=== PATIENT | female | born 1990 | race Caucasian/White ===

== ENCOUNTER 2021-02-18 07:46 | Inpatient (IN) | payer OTHER, MEDICAID, SELFPAY ==
[2021-02-18] VITALS (26 sets, daily range): BP systolic 124–169; BP diastolic 70–97; PULSE 61–93; RESP 16–18; TEMP 36.4–37; O2SAT 97–100
--- NOTE | 2021-02-18 09:51 | W.PM.OBHPL1 ---
Date of service: 02/18/21 Time of Service: 10:16 OB-HPI Labor/Delivery History of Present Illness Reason for Visit: Labor Induction Chief Complaint: Scheduled Induction of Labor Indication for Induction: Gestational Diabetes. Comments: 30 yo @ 39 1/7 weeks with well controlled GDM, pos GBS for scheduled induction. Recent bi-weekly NST's consistently Cat 1. Nl BP. Fasting sugars 90-100, pp consistently <120. Hypo thyroid TSH therapeutic on synthroid 75 mcg bilat carpal tunnel - bilat splints mild anemia - on oral iron h/h 11.5 third trimester first delivery 11 hrs on pit due to ROM - Agustín 9# 4 oz plans IUD - paraguard post plans breast feeding prefers to avoid epidural and is reluctant to use Nitrous. Prefers shower and tactile support from Madhav, her Is aware of GBS status and recc for abx Is aware of GDM risks post 39 weeks and attendant risks of induction. We spoke in office and again today re indications for induction, options of Miso vs Pitocin. She and Madhav are aware of tiny risk of hyperstimulation and FHT abnormalities on Pitocin. they wish to proceed. Given GDM there is avg risk of SD - though proven pelvis to 9# 4oz and biometry by Aliya is reassuring - fetus is vtx and ~ 7-8 #. PFSH Social History Smoking/Tobacco Use Status: Former Tobacco Use Quit Date: 02/04/13 Tobacco: How many years used: 8 Smoking risk assessment performed?: Yes Alcohol Intake: former Substance use type: does not use Meds Allergies and Home Medications Home Medications Medication Instructions Recorded Confirmed Type ferrous sulfate mg PO DAILY 02/18/21 History levothyroxine [Synthroid] PO DAILY 02/18/21 History Exam Physical Exam Vital signs: Temp Pulse Resp BP Pulse Ox 37 C 90 16 140/90 98 02/18/21 09:29 02/18/21 09:49 02/18/21 09:29 02/18/21 09:49 02/18/21 09:31 Detailed Labor and Delivery Exam William Score: Cervical Points Exam 0 1 2 3 Dilation Closed 1-2cm 3-4 cm 5-6cm Effacement 0-30% 40-50% 60-70% 80% Consistency Firm Medium Soft Station -3 -2 -1,0 +1,+2 Position Posterior Mid Anterior 30%, 3 cm, soft, mid, -3 all fit with Bishops 5 HEENT Exam HEENT Exam: Normal Respiratory Exam Respiratory Exam: Normal Abdominal Exam Abdominal Exam: Normal Detailed Abdominal Exam Comments: 40 cm fh - non tender Vtx and est weight = 7-8# Detailed Exam Perineum Description: Normal Comments: cervical exam 3 cm, sofr, mid position, -3, vtx, 30% in office 02/17 Skin Exam Skin Exam: Normal Additional findings Additional findings: alert, comfortable, expected mild anxiety Results Results Group Beta Strep: Positive Additional Findings Results: NST category 1 on admission initial BP's above average 135-140/85-90 - no epigastric sx, dee or visual changes Risk Assessment Risk for Shoulder Dystocia Increased Risk?: Yes Counseling: due to well controlled GDM Date/Initial: 02/18 [facility] Delivery Plan @ 40 wks: induction @ 39 weeks Risk for Pre-Eclampsia Daily Dose ASA Indicated: No Risk for Post- Hemorrhage At Risk?: No Risks Reviewed Risks Reviewed Upon Admission: Yes
[2021-02-18] MEDS: Normal Saline Flush 10 ML SYR IVP (10:12)
[2021-02-18 10:45] LABS: HCT 38.8 % (36.0-46.0); HGB 12.9 g/dL (11.2-15.7); MCH 29.5 pg (27.0-33.0); MCHC 33.2 % (32.0-36.0); MCV 88.8 fL (80-95); MPV 12.6 fL (8.0-11.0); Platelet Count 131 10^3/uL (130-400); RBC 4.37 10^6/uL (3.93-5.22); RDW 13.3 % (11.7-14.6); RDW-SD 43.5 fL; WBC 10.16 10^3/uL (4.4-10.8)
--- NOTE | 2021-02-18 10:59 | W.PM.OBNL1 ---
Date of service: 02/18/21 Time of Service: 11:11 Pelvic Exam Dilation: 3 Effacement (%): 30 station: -3 Position: OA Cervix Position: anterior Consistency: soft BISHOPS Score(Cervical Ripeness Score): 5 Vaginal Exam Presentation: Vertex Pooling: Negative Comments: intact membranes, vtx, bishops score is favorable Contractions Monitor Mode: External Contraction Frequency(min): none, yet Contraction Duration(sec): n/a Fetus A Monitor: External (US) Heart Rate Baseline: 145 Presentation: Vertex Variability: Moderate (6-25 BPM) Characteristics: Normal Accelerations: 15 X 15 Decelerations: None Amniotic Membrane Status: Intact Assessment Note: category one Objective Abnormal lab results 02/18/21 Range/Units 10:30 MPV 12.6 H (8.0-11.0) fL Temp Pulse Resp BP Pulse Ox 37 C 90 16 140/90 98 02/18/21 09:29 02/18/21 09:49 02/18/21 09:29 02/18/21 09:49 02/18/21 09:31 Laboratory Results WBC 10.16 10^3/uL (4.4-10.8) 02/18/21 10:30 RBC 4.37 10^6/uL (3.93-5.22) 02/18/21 10:30 Hgb 12.9 g/dL (11.2-15.7) 02/18/21 10:30 Hct 38.8 % (36.0-46.0) 02/18/21 10:30 MCV 88.8 fL (80-95) 02/18/21 10:30 MCH 29.5 pg (27.0-33.0) 02/18/21 10:30 MCHC 33.2 % (32.0-36.0) 02/18/21 10:30 RDW 13.3 % (11.7-14.6) 02/18/21 10:30 Plt Count 131 10^3/uL (130-400) 02/18/21 10:30 MPV 12.6 fL (8.0-11.0) H 02/18/21 10:30 Subjective Patient Reports: No new Complaints Interval history since last seen: up walking center staffing good to proceed. Gayla's BP is stable/improved. She and Madhav are ready to proceed. Given William's score and prior hx with successful induction with pitocin will start with that today. Interventions Induction Indication: Gestational Diabetes , Type of Induction: Pitocin , Results Hemoglobin/Hematocrit: Hgb 12.9 g/dL (11.2-15.7) 02/18/21 10:30 Hct 38.8 % (36.0-46.0) 02/18/21 10:30 Abnormal Lab Findings: Abnormal Labs 02/18/21 10:30 MPV 12.6 H
[2021-02-18] MEDS: Oxytocin/Normal Saline 30 UNIT/500 ML BAG 2 UNITS IV (11:46)
--- NOTE | 2021-02-18 12:33 | W.PM.OBNL1 ---
Date of service: 02/18/21 Time of Service: 12:37 Objective Abnormal lab results 02/18/21 Range/Units 10:30 MPV 12.6 H (8.0-11.0) fL Temp Pulse Resp BP Pulse Ox 36.6 C 93 H 16 124/81 98 02/18/21 12:04 02/18/21 12:04 02/18/21 09:29 02/18/21 12:04 02/18/21 09:31 Laboratory Results WBC 10.16 10^3/uL (4.4-10.8) 02/18/21 10:30 RBC 4.37 10^6/uL (3.93-5.22) 02/18/21 10:30 Hgb 12.9 g/dL (11.2-15.7) 02/18/21 10:30 Hct 38.8 % (36.0-46.0) 02/18/21 10:30 MCV 88.8 fL (80-95) 02/18/21 10:30 MCH 29.5 pg (27.0-33.0) 02/18/21 10:30 MCHC 33.2 % (32.0-36.0) 02/18/21 10:30 RDW 13.3 % (11.7-14.6) 02/18/21 10:30 Plt Count 131 10^3/uL (130-400) 02/18/21 10:30 MPV 12.6 fL (8.0-11.0) H 02/18/21 10:30 Patient ABO/Rh A Positive 02/18/21 10:30 Antibody Screen NEGATIVE 02/18/21 10:30 Subjective Interval history since last seen: Pit at 4 units - so far no ctx. Up moving with support from [place] no ROM, good FMVT FHT - cat 1 - no decels and no ctx no indication for cervical check O: BP better - see flow sheet A: Pit induction underway - fetus tolerating well maternal and wellbeing once ctx start will initiate IV ABX for GBS prophy P: Cont advancing pit ABX when ctx apparent Expect Results Hemoglobin/Hematocrit: Hgb 12.9 g/dL (11.2-15.7) 02/18/21 10:30 Hct 38.8 % (36.0-46.0) 02/18/21 10:30 Abnormal Lab Findings: Abnormal Labs 02/18/21 10:30 MPV 12.6 H
[2021-02-18 13:17] LABS: Source Nasal/Nares
--- NOTE | 2021-02-18 13:52 | W.PM.OBNL1 ---
Date of service: 02/18/21 Time of Service: 13:52 Objective Abnormal lab results 02/18/21 Range/Units 10:30 MPV 12.6 H (8.0-11.0) fL Temp Pulse Resp BP Pulse Ox 36.6 C 93 H 16 124/81 98 02/18/21 12:04 02/18/21 12:04 02/18/21 09:29 02/18/21 12:04 02/18/21 09:31 Laboratory Results WBC 10.16 10^3/uL (4.4-10.8) 02/18/21 10:30 RBC 4.37 10^6/uL (3.93-5.22) 02/18/21 10:30 Hgb 12.9 g/dL (11.2-15.7) 02/18/21 10:30 Hct 38.8 % (36.0-46.0) 02/18/21 10:30 MCV 88.8 fL (80-95) 02/18/21 10:30 MCH 29.5 pg (27.0-33.0) 02/18/21 10:30 MCHC 33.2 % (32.0-36.0) 02/18/21 10:30 RDW 13.3 % (11.7-14.6) 02/18/21 10:30 Plt Count 131 10^3/uL (130-400) 02/18/21 10:30 MPV 12.6 fL (8.0-11.0) H 02/18/21 10:30 COVID-19 Source Nasal/Nares 02/18/21 12:50 Patient ABO/Rh A Positive 02/18/21 10:30 Antibody Screen NEGATIVE 02/18/21 10:30 Subjective Interval history since last seen: Ctx now consistent and palpable - not too uncomfortable standing/rocking/tactile support from Madhav very helpful No ROM, good FMVT FHT cat 1 - no decels ctx q2 30-60 mmHg - palpate mild/moderate O: BP stable 130/80 A/P: Ctx pattern and frequency adequate - will recheck cervix in ~1 hr to confirm. Cont current pit dose till then - if no cervical change consider increasing pit then. Start GBS prophy abx - PEN G bolus and Q4 to follow Expect Results Hemoglobin/Hematocrit: Hgb 12.9 g/dL (11.2-15.7) 02/18/21 10:30 Hct 38.8 % (36.0-46.0) 02/18/21 10:30 Abnormal Lab Findings: Abnormal Labs 02/18/21 10:30 MPV 12.6 H
[2021-02-18] MEDS: Penicillin G POT. 5,000,000 UNITS in Normal Saline 100 ML 200 UNITS IVPB (14:47)
--- NOTE | 2021-02-18 14:48 | W.PM.OBNL1 ---
Date of service: 02/18/21 Time of Service: 14:48 Objective Abnormal lab results 02/18/21 Range/Units 10:30 MPV 12.6 H (8.0-11.0) fL Temp Pulse Resp BP Pulse Ox 36.5 C 81 16 133/80 98 02/18/21 14:16 02/18/21 14:16 02/18/21 09:29 02/18/21 14:16 02/18/21 09:31 Laboratory Results WBC 10.16 10^3/uL (4.4-10.8) 02/18/21 10:30 RBC 4.37 10^6/uL (3.93-5.22) 02/18/21 10:30 Hgb 12.9 g/dL (11.2-15.7) 02/18/21 10:30 Hct 38.8 % (36.0-46.0) 02/18/21 10:30 MCV 88.8 fL (80-95) 02/18/21 10:30 MCH 29.5 pg (27.0-33.0) 02/18/21 10:30 MCHC 33.2 % (32.0-36.0) 02/18/21 10:30 RDW 13.3 % (11.7-14.6) 02/18/21 10:30 Plt Count 131 10^3/uL (130-400) 02/18/21 10:30 MPV 12.6 fL (8.0-11.0) H 02/18/21 10:30 COVID-19 Source Nasal/Nares 02/18/21 12:50 Patient ABO/Rh A Positive 02/18/21 10:30 Antibody Screen NEGATIVE 02/18/21 10:30 Subjective Interval history since last seen: Continues to do well - excellent support Quite comfortable through ctx SROM - clear and evident pooling on floor + FMVT, no JI, visual changes, fever O: BP stable cervix 4+ cm, soft, 50%/ruptured with clear AF, OA, -3 FHT Cat 1 No decels, mod variability ctx - still variation in intensity - Q2-3 min A/P: Early labor - expected cervical change CTX pattern mild/mod - will bump pit dose by 2 units and expect that plus SROM to increase intensity GBS prophy started - Pen G load infusing currently. Expect Shower and close support from her Madhav varghese. Hernandez Results Hemoglobin/Hematocrit: Hgb 12.9 g/dL (11.2-15.7) 02/18/21 10:30 Hct 38.8 % (36.0-46.0) 02/18/21 10:30 Abnormal Lab Findings: Abnormal Labs 02/18/21 10:30 MPV 12.6 H
--- NOTE | 2021-02-18 17:10 | W.PM.OBNL1 ---
Date of service: 02/18/21 Time of Service: 17:10 Objective Abnormal lab results 02/18/21 Range/Units 10:30 MPV 12.6 H (8.0-11.0) fL Temp Pulse Resp BP Pulse Ox 36.7 C 63 16 151/81 H 98 02/18/21 16:00 02/18/21 17:09 02/18/21 09:29 02/18/21 17:09 02/18/21 09:31 Laboratory Results WBC 10.16 10^3/uL (4.4-10.8) 02/18/21 10:30 RBC 4.37 10^6/uL (3.93-5.22) 02/18/21 10:30 Hgb 12.9 g/dL (11.2-15.7) 02/18/21 10:30 Hct 38.8 % (36.0-46.0) 02/18/21 10:30 MCV 88.8 fL (80-95) 02/18/21 10:30 MCH 29.5 pg (27.0-33.0) 02/18/21 10:30 MCHC 33.2 % (32.0-36.0) 02/18/21 10:30 RDW 13.3 % (11.7-14.6) 02/18/21 10:30 Plt Count 131 10^3/uL (130-400) 02/18/21 10:30 MPV 12.6 fL (8.0-11.0) H 02/18/21 10:30 COVID-19 Source Nasal/Nares 02/18/21 12:50 Patient ABO/Rh A Positive 02/18/21 10:30 Antibody Screen NEGATIVE 02/18/21 10:30 Subjective Interval history since last seen: Continues to tolerate quite well. Some variation in intensity - freq is q 2-4. good FMVT, clear AF or JI or vision changes walking some, up rocking hips taking good PO O: 148/90 bright, alert, comfortable during and in between ctx soft non-tender abd FHT - cat 1 no decels CTX - mod - 40-50 mmHG q 2-4 Cervix - 5+ cm/70%/-2/vtx/ruptured A/P: Appropriate progress with excellent support, position changes Given shared decision making and variation in ctx intensity will increase pit to 12 close f/u of BP - diastolic has been consistently in 80's second dose PEN due ~7 PM Expect S.Genereaux Results Hemoglobin/Hematocrit: Hgb 12.9 g/dL (11.2-15.7) 02/18/21 10:30 Hct 38.8 % (36.0-46.0) 02/18/21 10:30 Abnormal Lab Findings: Abnormal Labs 02/18/21 10:30 MPV 12.6 H
[2021-02-18 17:54] LABS: COVID-19 PCR Negative (Negative)
--- NOTE | 2021-02-18 18:50 | PGE_ITS ---
Date of service: 02/18/21 Time of Service: 18:50 Objective Abnormal lab results 02/18/21 Range/Units 10:30 MPV 12.6 H (8.0-11.0) fL Temp Pulse Resp BP Pulse Ox 36.5 C 61 16 152/91 H 98 02/18/21 18:26 02/18/21 18:26 02/18/21 09:29 02/18/21 18:26 02/18/21 09:31 Laboratory Results WBC 10.16 10^3/uL (4.4-10.8) 02/18/21 10:30 RBC 4.37 10^6/uL (3.93-5.22) 02/18/21 10:30 Hgb 12.9 g/dL (11.2-15.7) 02/18/21 10:30 Hct 38.8 % (36.0-46.0) 02/18/21 10:30 MCV 88.8 fL (80-95) 02/18/21 10:30 MCH 29.5 pg (27.0-33.0) 02/18/21 10:30 MCHC 33.2 % (32.0-36.0) 02/18/21 10:30 RDW 13.3 % (11.7-14.6) 02/18/21 10:30 Plt Count 131 10^3/uL (130-400) 02/18/21 10:30 MPV 12.6 fL (8.0-11.0) H 02/18/21 10:30 COVID-19 Source Nasal/Nares 02/18/21 12:50 SARS-CoV-2 (PCR) Negative (Negative) 02/18/21 12:50 Patient ABO/Rh A Positive 02/18/21 10:30 Antibody Screen NEGATIVE 02/18/21 10:30 Subjective Interval history since last seen: In shower now for close to an hour with steady strong ctx - excellent support from [place] on going clear AF, good FMVT Some rectal pressure with ctx Not wanting to leave shower or get into bed due to comfort Pit at 12 O: 150/80 with ctx - quite iuncomfortable FHT - cat 1 - no decels CTX - strong consistent Q 2-3 cervix - 8 cm, soft/80%/-1/vtx - no caput or molding A/P: Term GDM - induction progress as expected - approp ctx pattern and cervical change and maternal wellbeing GBS prophy underway - due 7pm Expect S.Generbola Results Hemoglobin/Hematocrit: Hgb 12.9 g/dL (11.2-15.7) 02/18/21 10:30 Hct 38.8 % (36.0-46.0) 02/18/21 10:30 Abnormal Lab Findings: Abnormal Labs 02/18/21 10:30 MPV 12.6 H
[2021-02-18] MEDS: Penicillin G POT. 3,000,000 UNITS in Normal Saline 50 ML 100 UNITS IVPB (19:03)
--- NOTE | 2021-02-18 19:31 | W.PM.OBNL1 ---
Date of service: 02/18/21 Time of Service: 19:32 Objective Abnormal lab results 02/18/21 Range/Units 10:30 MPV 12.6 H (8.0-11.0) fL Temp Pulse Resp BP Pulse Ox 36.5 C 67 16 149/84 H 98 02/18/21 18:26 02/18/21 19:29 02/18/21 09:29 02/18/21 19:29 02/18/21 09:31 Laboratory Results WBC 10.16 10^3/uL (4.4-10.8) 02/18/21 10:30 RBC 4.37 10^6/uL (3.93-5.22) 02/18/21 10:30 Hgb 12.9 g/dL (11.2-15.7) 02/18/21 10:30 Hct 38.8 % (36.0-46.0) 02/18/21 10:30 MCV 88.8 fL (80-95) 02/18/21 10:30 MCH 29.5 pg (27.0-33.0) 02/18/21 10:30 MCHC 33.2 % (32.0-36.0) 02/18/21 10:30 RDW 13.3 % (11.7-14.6) 02/18/21 10:30 Plt Count 131 10^3/uL (130-400) 02/18/21 10:30 MPV 12.6 fL (8.0-11.0) H 02/18/21 10:30 COVID-19 Source Nasal/Nares 02/18/21 12:50 SARS-CoV-2 (PCR) Negative (Negative) 02/18/21 12:50 Patient ABO/Rh A Positive 02/18/21 10:30 Antibody Screen NEGATIVE 02/18/21 10:30 Subjective Interval history since last seen: feeling pushy, more intense ctx - ready to get out of the shower good FMVT, clear AF pit at 12 S/p two doses GBS prophy O: Cervix: 9cm/90%/0 sta/vtx/ruptured/OA FHT - cat 1 - no decels CTX - strong and Q2 bp 149/81 - stable A/P: Entering second stage - will support pushing when ready - will encourage passive descent in short term to get to fully and Maternal wellbeing on current pit level complete GBS prophy complete Expect S. Genereaux Results Hemoglobin/Hematocrit: Hgb 12.9 g/dL (11.2-15.7) 02/18/21 10:30 Hct 38.8 % (36.0-46.0) 02/18/21 10:30 Abnormal Lab Findings: Abnormal Labs 02/18/21 10:30 MPV 12.6 H
--- NOTE | 2021-02-18 20:54 | W.OBDELIVERY ---
Date of service: 02/18/21 Time of Service: 20:54 OB Labor/ Delivery Information Baby A Delivery Delivery Method: Spontaneaous Presentation: Cephalic Cephalic Position: Vertex Vertex Position: Left Occipital Posterior Cord Description-Baby A: 3 Vessels Cord Description Comment: nl 3v cord Estimated Blood Loss: 400 Delivery Outcome: Liveborn Infant Complications: none Transferred: Nursery Note: 8/9 - nl nb exam Providers Other: genereaux Labor/Delivery Information Number of Babies in Womb: 1 Steroids Given: None Reason Steroids Not Administered: N/A Group Beta Strep: Positive Antibiotics Administered: Yes Number of Doses of Antibiotics: 2 Rubella Status: Immune Blood Type: A+ Varicella Immunity: Immune Medication in Delivery: iv abx, pitocin Shoulder Dystocia: No Note: precip delivery standing cord - placenta retained one bedside attempt at manual extraction unsuccessful will consult ob and perhaps head to OR for definitive extraction risk of accreta present Stages of Labor Onset of Labor Date: 02/18/21 Onset of Labor Time: 13:00 Complete Dilatation Date: 02/18/21 Complete Dilatation Time: 20:10 Labor - Stage 1 Duration: 0 minutes ROM Baby A: 02/18/21 ROM Baby A: 14:19 ROM Total Time- Baby A: [id number] Infant Delivery Date-Baby A: 02/18/21 Delivery Time-Baby A: 20:11 Labor Stage 2 Duration: 1 minutes Placenta Delivery Date-Baby A: 02/18/21 Total Length of Labor-Baby A: 7 hours and 11 minutes Baby A Gender: Female Gestational Status: Term (39-41.6 wks) Gestational Age in Weeks/Days: 39 Weeks and 3 Days Score-1 Minute Interval(Baby A) Heart Rate-1 minute: 100 BPM or Greater Respiratory Effort- 1 minute: Spontaneous/Strong Cry Muscle Tone-1 minute: Active Movement Reflex Response-1 minute: Prompt Response Color-1 minute: Pallor or Cyanosis Score-5 Minute Interval(Baby A) Heart Rate- 5 minute: 100 BPM or Greater Respiratory Effort-5 minute: Spontaneous/Strong Cry Muscle Tone-5 minute: Active Movement Reflex Response-5 minute: Prompt Response Color-5 minute: Bluish Hands or Feet Note: see above re retained placenta
--- NOTE | 2021-02-18 20:55 | ANES.PREOP_ITS ---
Meds Allergies and Home Medications Home Medication Medication Instructions Recorded ferrous sulfate 325 mg PO DAILY 02/18/21 levothyroxine [Synthroid] 75 mcg PO DAILY 02/18/21 Current Visit Medications: Current Medications Generic Name Dose Route Start Last Admin Trade Name Freq PRN Reason Stop Dose Admin Oxytocin/Sodium Chloride 30 unit in 500 mls @ 2 mls/hr 02/18/21 11:00 02/18/21 17:02 Pitocin/Normal Saline IV 12 milliunits/min INFUSION MATTHEW 12 mls/hr Titration Protocol 2 MILLIUNITS/MIN Penicillin G Potassium 3,000, 50 mls @ 100 mls/hr 02/18/21 19:00 02/18/21 19:03 000 units/ Sodium Chloride IVPB 100 mls/hr Q4H MATTHEW Administration Sodium Chloride 500 mls @ 0 mls/hr 02/18/21 13:44 Saline 500ml Bag IV PRN PRN As Directed Ringer's Solution 1,000 mls @ 125 mls/hr 02/18/21 19:45 IV INFUSION MATTHEW IV Miscellaneous Supplies 1 each 02/18/21 13:45 Iv Access IV DIRECTED MATTHEW Sodium Chloride 0 ml 02/18/21 13:44 Normal Saline Flush 10 Ml Syr IVP PRN PRN PFSH Medical History Medical History Comments:: Per H&P: Gestational DM and hypothyroid. Patient stable on synthroid. Tobacco Smoking/Tobacco Use Status: Former Tobacco Use Tobacco: How many years used: 8 Alcohol Alcohol Intake: former Substance Use Substance use type: does not use Vital Signs and Lab Results Vital Signs Most Recent Vital Signs in EMR: Most Recent Vital Signs Temp Pulse Resp BP Pulse Ox 36.5 C 81 16 147/85 H 100 02/18/21 18:26 02/18/21 20:54 02/18/21 09:29 02/18/21 20:49 02/18/21 20:54 Lab Results Result Diagrams: 02/18/21 10:30 Blood Type / Crossmatch: Patient ABO/Rh A Positive 02/18/21 10:30 02/18/21 Antibody Screen NEGATIVE 02/18/21 10:30 02/18/21 Complete Blood Count: White Blood Count 10.16 10^3/uL (4.4-10.8) 02/18/21 10:30 02/18/21 Red Blood Count 4.37 10^6/uL (3.93-5.22) 02/18/21 10:30 02/18/21 Hemoglobin 12.9 g/dL (11.2-15.7) 02/18/21 10:30 02/18/21 Hematocrit 38.8 % (36.0-46.0) 02/18/21 10:30 02/18/21 Platelet Count 131 10^3/uL (130-400) 02/18/21 10:30 02/18/21 Complete Metabolic Panel: No Data to Display Liver Function Panel: No Data to Display Coagulation Panel: No Data to Display Cardiac Panel: No Data to Display Arterial Blood Gas: No Data to Display Venous Blood Gas: No Data to Display Pancreas Panel: No Data to Display Thyroid Panel: No Data to Display Infectious Disease: 2 Coronavirus (COVID-19)(PCR) Negative (Negative) 02/18/21 12:50 02/18/21 Coronavirus 2019 Source Nasal/Nares 02/18/21 12:50 02/18/21 Blood Cultures: No Data to Display Toxicology Panel: No Data to Display Panel: No Data to Display Anesthesia Assessment and Plan Anesthesia History Personal History: No History of Anesthesia Complications Family History: No Family History of Anesthesia Complications Exercise Tolerance Exercise Tolerance: Metabolic Equivalents>4 Pertinent Negatives Pertinent Negatives: No Major Cardiovascular Symptoms or Complaints, No Major Pulmonary Symptoms or Complaints and No History of CVA/TIA Cardiac & Pulmonary Exam Cardiac Exam: Normal S1/S2 Heart Sounds Pulmonary Exam: Clear Bilateral Breath Sounds Airway Exam Known Difficult Airway: No Mallampati Class: 2 Mouth Opening: Normal (> 3cm) Thyromental Distance: Greater than 3 cm Neck Range of Motion: Full ROM Neck Circumference: Normal Teeth Condition: Normal Dentition ASA Classification ASA Score: ASA 2 Emergency Case?: Yes NPO Status NPO Status: Full Stomach Status Status: Other (Recently ) Anesthesia Plan Resuscitation Status: Full Code Anesthesia Technique: General Anesthesia (RSI) Airway Planned: Endotracheal Tube Monitors Used: Standard Monitors
--- NOTE | 2021-02-19 06:07 | NUR.NOTE ---
Nursing Note: At 20:20 umbilical cord noted to be avulsed by Dr. José, no heavy bleeding noted. 20:30 oxytocin bolus started. At 20:36 Dr. Avelar notifed of situation by Dr. José, renovation plant supervisor notified, called in OR team. 20:55 Second IV placed 18g R AC by supervisor dimension warehouse. Vaginal bleeding remains moderate. 2102 Turcios catheter placed for return 400ml clear urine. Pt involved in all decisions of care, questions answered. 2112 Dr Avelar present, evaluated pt. 2[address] manually extracted by Dr Avelar, fundus massaged, firm at umbilicus, no heavy bleeding or clots, pt tolerated well. Will continue to monitor.
[2021-02-19 08:30] LABS: HGB 12.3 g/dL (11.2-15.7); MCH 29.5 pg (27.0-33.0); MCHC 33.2 % (32.0-36.0); MCV 88.7 fL (80-95); MPV 13.5 fL (8.0-11.0); Platelet Count 142 10^3/uL (130-400); RBC 4.17 10^6/uL (3.93-5.22); RDW 13.4 % (11.7-14.6); RDW-SD 43.9 fL; WBC 14.52 10^3/uL (4.4-10.8)
[2021-02-19] MEDS: Ibuprofen 600 MG TAB PO (08:34)
[2021-02-19] MEDS: Acetaminophen 325 MG TAB 650 MG PO (08:34)
[2021-02-19 08:44] VITALS: BP 128/84; PULSE 81; RESP 16; TEMP 36.3; O2SAT 97
--- NOTE | 2021-02-19 09:14 | DSE_ITS ---
Date of service: 02/19/21 Time of Service: 09:14 DS: Diagnosis Discharge Diagnosis (1) (normal spontaneous vaginal delivery): Status: Acute (2) Retained placenta: Status: Acute (3) Gestational diabetes mellitus (GDM) affecting : Status: Acute Discharge Plan Disposition Patient Disposition: HOME Condition: Good Discharge Details Reason For Visit: Labor Induction Admit Date/Time: 02/18/21 07:46 Admit Provider: Pedrito José Attending Provider: Pedrito José Primary Care Provider: Pedrito José Hospital Course Hospital Course: following pit induction for GDM @ 39 weeks. with ruptured/torn cord due to sudden traction during precip delivery while standing. Subsequent retained placenta required two attempts at manual extraction - successfully removed essentially spontaneaously at second attempt. Minimal EBL - 400. IV pit. Breast feeding support planned - pump Home Meds and New Rx's Prescriptions: No Action levothyroxine [Synthroid] 75 mcg Tablet 75 mcg PO DAILY RF: 0 ferrous sulfate 325 mg (65 mg iron) Tablet 325 mg PO DAILY RF: 0 Discharge Instructions Additional Instructions: breast pump for home use cont daily synthroid and iron f/u appts fri 1:00 for weight recheck with Dr. Rogers mon 02/23 10:00 for weight recheck with Dr. Ribera Activity:: Activity as Tolerated Equipment/Supplies:: breast pump Diet:: As Tolerated Discharge Orders Discharge Orders: Discharge Order (Routine); Ordered 02/19/21 Ordered By: Pedrito José OB:DS Summary Summary Vaginal Delivery Method: Spontaneaous Laceration Description: None Contraception Discussed Contraception Discussed: Yes, Infant Gender-Baby A: Female weight: 3935 g Status at Discharge Functional status at discharge: independent ambulation Overall status at discharge: patient is back to baseline Mental Status: mental status grossly normal Speech and Movement: speech and movement normal Mood: congruent mood Affect: normal affect Exam Physical Exam Vital signs: Temp Pulse Resp BP Pulse Ox 36.3 C L 81 16 128/84 97 02/19/21 08:44 02/19/21 08:44 02/19/21 08:44 02/19/21 08:44 02/19/21 08:44 Constitutional Comments: exam is benign: alert, chiupper, comfortable doing all self care - showered, eating, voiding no unusual lochia, fever or pain expected perineal discomfort lungs - celar cgv s- reg, no murmur abd - soft, non-tender with firm fundus at umbilicus ext - scant/no pedal edema - baseline hand edema unchanged from pre time [facility] Social History Smoking/Tobacco Use Status: Former Tobacco Use Quit Date: 02/04/13 Tobacco: How many years used: 8 Smoking risk assessment performed?: Yes Alcohol Intake: former Substance use type: does not use DS: Data Vitals/I&O Vitals and I&O: Vital Signs Temperature 36.3 C L 02/19/21 08:44 Pulse 81 02/19/21 08:44 Pulse Rhythm Regular 02/19/21 08:44 Respiratory Rate 16 02/19/21 08:44 Blood Pressure 128/84 02/19/21 08:44 Blood Pressure Mean 98 02/19/21 08:44 Pulse Oximetry 97 02/19/21 08:44 Pain Level 2 02/19/21 08:44 Comment 02/18/21 17:09 Intake & Output 02/18/21 02/18/21 02/19/21 11:59 23:59 11:59 Intake Total 400 / 1045.100 645.100 / 1045.100 150 / 150 Output Total 300 / 1000 700 / 1000 700 / 700 Balance 100 / 45.100 -54.900 / 45.100 -550 / -550 Weight 110.677 kg Intake: IV 45.100 / 45.100 150 / 150 Oral 400 / 1000 600 / 1000 Output: Urine 300 / 1000 700 / 1000 700 / 700 Other: Urine Color Yellow Yellow Urine Appearance Clear Data Completed and Pending Labs on day of discharge: Labs from last 24 hours 02/19/21 02/18/21 02/18/21 07:50 12:50 10:30 WBC 14.52 H D RBC 4.17 Hgb 12.3 Hct 37.0 MCV 88.7 MCH 29.5 MCHC 33.2 RDW 13.4 Plt Count 142 MPV 13.5 H COVID-19 Source Nasal/Nares SARS-CoV-2 (PCR) Negative Patient ABO/Rh A Positive Antibody Screen NEGATIVE 02/18/21 10:30 WBC 10.16 RBC 4.37 Hgb 12.9 Hct 38.8 MCV 88.8 MCH 29.5 MCHC 33.2 RDW 13.3 Plt Count 131 MPV 12.6 H COVID-19 Source SARS-CoV-2 (PCR) Patient ABO/Rh Antibody Screen
--- NOTE | 2021-02-19 12:19 | OBCE_ITS ---
Date of service: 02/19/21 Time of Service: 12:19 Assessment and Plan Assessment and plan (1) Retained placenta: Status: Acute Qualifiers: Retained placenta detail: complete placenta Qualified Code(s): O73.0 - Retained placenta without hemorrhage (2) (normal spontaneous vaginal delivery): Status: Acute History of Present Illness History of Present Illness Chief Complaint: retained placenta Narrative: I received a phone call from Dr. José, the delivering provider, ~ 20min after the patient had delivered a viable female while in the standing position. There was an avulsion of the umbilical cord from the placenta at the time of delivery. The umbilical cord had been clamped and cut without any or maternal blood loss. The mother had received Oxytocin after delivery of the . After 20 min of fundal massage the placenta had not delivered. Attempts at grasping the placental edge were complicated by pt discomfort and the lack of an umbilical cord. There was minimal vaginal bleeding and the pt's vital signs were stable. Upon arrival in the patien't room a repeat SVE was performed and the placenta was in the vaginal vault. She was able to expel the placenta with two excellent maternal expulsive efforts. The maternal surface was intact and the cord evulsed at the central insertion. The patient's uterus was firm and bleeding was minimal. Placenta was not sent to pathology. Consults Consult date: 02/18/21 Requesting physician: Pedrito José Review of Systems All systems reviewed & are unremarkable except as noted in HPI and below PFSH Social History Smoking/Tobacco Use Status: Former Tobacco Use Quit Date: 02/04/13 Tobacco: How many years used: 8 Smoking risk assessment performed?: Yes Alcohol Intake: former Substance use type: does not use History History 3 Para 2 Hx # Term Pregnancies 2 Multiple births Hx # Pregnancies Ectopic pregnancies AB induced Hx Number of Living Children 2 AB spontaneous Past Pregnancies Del. Date GA/Weeks # Outcome Route Wgt Sex Labor Lgth Anesthes ia Location Prov Complic 02/18/21 No Successful vaginal Female edith phen generaux Delivery Date: 02/18/21 avulsion of umbilical cord. Spontaneous del of placenta. Annel Avelar Results Last Vital Signs Temp 97.3 F L 02/19/21 08:44 Pulse 81 02/19/21 08:44 Resp 16 02/19/21 08:44 BP 128/84 02/19/21 08:44 Pulse Ox 97 02/19/21 08:44 Labs Result diagrams: 02/19/21 07:50 Labs: Laboratory Results - last 24 hr 02/18/21 02/19/21 12:50 07:50 WBC 14.52 H D RBC 4.17 Hgb 12.3 Hct 37.0 MCV 88.7 MCH 29.5 MCHC 33.2 RDW 13.4 Plt Count 142 MPV 13.5 H COVID-19 Source Nasal/Nares SARS-CoV-2 (PCR) Negative
== END 2021-02-19 12:35 | disposition home or self-care (01) | DRG 807 ==
PROVIDERS: Admitting Provider Family Medicine; PCP Family Medicine; Visit Provider Family Medicine
DX: O24.429 Gestational diabetes mellitus in childbirth, unspecified control (principal); Z37.0 Single live birth; O99.824 Streptococcus B carrier state complicating childbirth; O73.1 Retained portions of placenta and membranes, without hemorrhage; O62.3 Precipitate labor; Z3A.39 39 weeks gestation of pregnancy
CPT/HCPCS: 36415; 85027; 86850; 86900; 86901; 87635; J2540; J2704

== ENCOUNTER 2024-02-02 14:56 | Outpatient (REF) | payer MEDICAID, SELFPAY ==
[2024-02-06 12:57] LABS: Chlamydia Result Negative (Negative); GC Result Negative (Negative)
== END 2024-02-02 14:57 | disposition home or self-care (01) ==
LOC: LBN 14:56
PROVIDERS: PCP Family Medicine; Visit Provider Obstetrics & Gynecology
DX: N89.8 Other specified noninflammatory disorders of vagina (principal)
CPT/HCPCS: 87491; 87591; 87480; 87510; 87660

== ENCOUNTER 2024-02-02 14:56 | Outpatient (CLI) | payer MEDICAID, SELFPAY ==
[2024-02-02 15:07] LABS: HCG Quant, Pregnancy 1 mIU/mL (1-3); TSH (W/Ref FT4) 2.82 uIU/mL (0.36-3.74)
== END 2024-02-02 14:57 | disposition home or self-care (01) ==
LOC: LBO 14:57
PROVIDERS: PCP Family Medicine; Visit Provider Obstetrics & Gynecology
DX: N93.8 Other specified abnormal uterine and vaginal bleeding (principal); N89.8 Other specified noninflammatory disorders of vagina
CPT/HCPCS: 36415; 87491; 87591; 84443; 84702; 87480; 87510; 87660

== ENCOUNTER 2024-02-07 02:15 | Outpatient (CLI) | payer MEDICAID, SELFPAY ==
--- NOTE | 2024-02-07 07:45 | DI.US_ITS ---
Exam(s) US PELVIS TRANSVAGINAL EXAM: US PELVIS TRANSVAGINAL CLINICAL HISTORY: check stripe,dysfunctional uterine bleeding,n93.8,contraception management. TECHNIQUE: Transabdominal and transvaginal pelvic ultrasound was performed using standard protocol. COMPARISON: No exams were available for comparison FINDINGS: UTERUS: Position: Anteverted. Size: 10.7 long by 7.2 AP by 8.0 transverse cm Endometrium: 1.0 cm. Normal for patient's menstrual status. Myometrium: Unremarkable. Cervix: Nabothian cysts are present. OVARIES: The ovaries were only visualized transabdominally. Right: 3.4 x 2.8 x 2.4 cm Cyst or mass: No suspicious cystic or solid masses. Left: 4.3 x 3.5 x 3.1 cm Cyst or mass: No suspicious cystic or solid masses. DOPPLER: Color: Symmetric and uniform flow to both ovaries. CUL-DE-SAC: Free fluid: None. Other: None. IMPRESSION: 1. Normal-appearing uterus with endometrial stripe within normal limits. 2. Unremarkable bilateral ovaries. DATA REPOSITORY:
== END 2024-02-07 02:35 ==
LOC: DI 02:15
PROVIDERS: PCP Family Medicine; Visit Provider Obstetrics & Gynecology
DX: N93.8 Other specified abnormal uterine and vaginal bleeding
CPT/HCPCS: 76830; 76856

== ENCOUNTER 2024-05-08 11:34 | Outpatient (REF) | payer MEDICAID, SELFPAY ==
[2024-05-09 12:43] LABS: Chlamydia Result Negative (Negative); GC Result Negative (Negative)
== END 2024-05-08 11:35 | disposition home or self-care (01) ==
LOC: LBN 11:34
PROVIDERS: PCP Family Medicine; Visit Provider Obstetrics & Gynecology
DX: Z30.9 Encounter for contraceptive management, unspecified (principal); R10.2 Pelvic and perineal pain; N93.8 Other specified abnormal uterine and vaginal bleeding; F32.A Depression, unspecified; Z97.5 Presence of (intrauterine) contraceptive device
CPT/HCPCS: 87491; 87591

== ENCOUNTER 2024-06-07 02:29 | Outpatient (CLI) | payer MEDICAID, SELFPAY ==
--- NOTE | 2024-06-07 07:26 | DI.US_ITS ---
Exam(s) US PELVIS TRANSVAGINAL EXAM: US PELVIS TRANSVAGINAL CLINICAL HISTORY: Check IUD placement,z97.5 TECHNIQUE: Transabdominal and transvaginal imaging was performed using standard protocol. COMPARISON: US US PELVIS TRANSVAGINAL from 02/07/2024 FINDINGS: The bladder is unremarkable as visualized. UTERUS: Anteverted. 9.9 x 4.7 x 6.6 cm Endometrium: 8 mm IUD is noted within the endometrium appears appropriately position. Myometrium: Unremarkable. Cervix: Unremarkable. OVARIES: Right: Cyst or mass: None. Left: Cyst or mass: None. DOPPLER: Color: Symmetric and uniform flow to both ovaries. No hyperemia. CUL-DE-SAC: Free fluid: None. IMPRESSION: 1. Normal-appearing uterus with endometrial stripe within normal limits. IUD in appropriate position . 2. Unremarkable bilateral ovaries. DATA REPOSITORY:
== END 2024-06-07 02:49 ==
LOC: DI 02:29
PROVIDERS: PCP Family Medicine; Visit Provider Obstetrics & Gynecology
DX: Z97.5 Presence of (intrauterine) contraceptive device (principal); Z30.431 Encounter for routine checking of intrauterine contraceptive device
CPT/HCPCS: 76830; 76856